=== PATIENT | female | born 1955 | race Caucasian/White ===

== ENCOUNTER 2019-05-20 09:57 | Outpatient (CLI) | payer BC ==
[2019-05-20] MEDS ORDERED: Iopamidol 370 76% 100 ML VIAL ONE (14:43)
--- NOTE | 2019-05-20 17:52 | CT ---
CT ABDOMEN AND PELVIS WITH AND WITHOUT CONTRAST: 05/20/[address] of the abdomen and pelvis was performed. Initially slices were obtained without IV contrast , then post IV contrast axial slices were acquired. Coronal and sagittal reconstructions were done th rough areas of interest afterwards. Oral contrast was also used for this examination. The lung bases are clear. The liver shows a 10 mm cyst in the dome of the liver that was present on a 2016 scan. An even tinier subcentimeter cyst is seen near the junction of the right and left lobes. Neither is judged to be significant. The spleen, pancreas, gallbladder, adrenal glands and abdominal aorta showed no significant findings. There are several nonobstructing right renal calculus, mainly in the lower pole. A very tiny stone ma y be present in the upper pole of the left kidney. These were present before, though there were more calcifications in the right kidney on the prior scan. No ureteral calculi or ureteral dilation was se en (distal ureters not shown on this study). There appears to be some mild thickening of the duodenum through the proximal few feet of jejunum. Af ter this point, the bowel showed no acute findings, no wall thickening, or reid-intestinal inflammato ry change. No free air of free fluid was present. The bony structures appear intact. There is some mild disc space narrowing at L5-S1 and perhaps some slight concentric bulging of the L4-L5 disc. No focal disc herniations were appreciated. IMPRESSION: 1. Small nonobstructing renal calculi, actually fewer than the older scan. 2. Mild thickening of the duodenum through the first few feet of the jejunum. Mild enteritis is a possibility. 3. Note that this being a CT of the abdomen, it stops in the upper pelvic region just beyond the bifurcation of the aorta. All of the left lower quadrant is not imaged on this exam. Through the are as scanned, there were no obvious masses or signs of diverticulitis. POS: HOME
== END 2019-05-20 09:58 | disposition home or self-care (01) ==
LOC: BURCT 09:57
PROVIDERS: ATTEND Family Medicine
DX: R10.32 Left lower quadrant pain (principal); G89.29 Other chronic pain; R19.00 Intra-abdominal and pelvic swelling, mass and lump, unspecified site; N20.0 Calculus of kidney; K31.89 Other diseases of stomach and duodenum
CPT/HCPCS: 74170; Q9967

== ENCOUNTER 2020-03-25 15:27 | Outpatient (CLI) | payer BC ==
--- NOTE | 2020-03-25 19:13 | RAD ---
RIGHT THUMB THREE VIEWS: 03/25/20 No fracture or joint abnormality was seen. The bones all appeared normal. IMPRESSION: No acute findings. POS: HOME
== END 2020-03-25 15:28 | disposition home or self-care (01) ==
LOC: BURRAD 15:27
DX: S69.92XA Unspecified injury of left wrist, hand and finger(s), initial encounter (principal)

== ENCOUNTER 2024-01-01 15:23 | Outpatient (CLI) | payer MEDICARE, BC | END 2024-01-01 15:24 | disposition home or self-care (01) | LOC: BURCT 15:23 | PROVIDERS: ATTEND Family Medicine | DX: S09.90XS Unspecified injury of head, sequela (principal) | CPT/HCPCS: 70450 ==